=== PATIENT | female | born 1955 | race Caucasian/White ===

== ENCOUNTER → 2017-08-02 | Outpatient (CLI) | payer OTHER ==
[~2017-08-02] MED LIST: ASPIR-LOW81 MG PO; ATIVAN0.5 MG PO; BIAXIN500 MG PO; CLARITIN10 MG PO; DOXYCYCLINE100 MG PO; LOVASTATIN40 MG PO; METFORMIN500 MG PO; METOPROLOL SR25 MG PO; MOTRIN800 MG PO; NORCO 5-325 TA1 EACH PO; PAXIL40 MG PO; PREVACID SOLUTA30 MG PO; XARELTO10 MG PO
[2017-08-02 10:32] LABS: BASO # 0.1 10*3/uL (0.0-0.1); BASO % 1.2 % (0.0-1.0); EOS # 0.2 10*3/uL (0.0-0.4); EOS % 4.9 % (1.0-4.0); HEMATOCRIT 44.8 % (37.0-47.0); HEMOGLOBIN 14.5 g/dl (12.0-16.0); LYMPH # 1.4 10*3/uL (1.3-4.4); LYMPH % 28.8 % (27.0-41.0); MEAN CELL VOLUME 90.9 fl (81.0-99.0); MEAN CORPUSCULAR HGB 29.4 pg (27.0-31.0); MEAN CORPUSCULAR HGB CONC 32.4 g/dl (33.0-37.0); MEAN PLATELET VOLUME 11.4 fl (9.6-12.3); MONO # 0.6 10*3/uL (0.1-1.0); MONO % 11.4 % (3.0-9.0); NEUT # 2.6 10*3/uL (2.3-7.9); NEUT % 53.5 % (47.0-73.0); PLATELET COUNT AUTOMATED 181 10*3/uL (130-400); RED BLOOD COUNT 4.93 10*6/uL (4.10-5.10); RED CELL DISTRI WIDTH 13.2 % (0-14.5); WHITE BLOOD COUNT 4.9 10*3/uL (4.8-10.8)
[2017-08-02 10:38] LABS: ALBUMIN 3.6 gm/dl (3.1-4.5); ALKALINE PHOSPHATASE 99 U/L (45-117); BUN 12 mg/dl (7-24); CHLORIDE 106 mmol/L (98-107); CHOLESTEROL 184 mg/dL (<200); FREE T4 0.94 ng/dl (0.76-1.46); HDL CHOLESTEROL 56 mg/dl (40-60); LDL CHOLESTEROL 97 mg/dL (9-159); SGOT/AST 24 IU/L (3-35); SGPT/ALT 36 U/L (12-78); SODIUM 142 mmol/L (136-145); TOTAL PROTEIN 7.7 gm/dL (6.4-8.2); TRIGLYCERIDES 155 mg/dl (<150); VLDL CHOLESTEROL 31 mg/dL (6-40)
[2017-08-02 10:43] LABS: THYROID STIM HORMONE (HS) 0.722 uIU/ml (0.358-4.75)
[2017-08-02 11:45] LABS: VITAMIN D, 25-HYDROXY 43.6 ng/mL (30-100)
== END | disposition home or self-care (01) ==
LOC: LAB 02:56 → MAMMO 13:00
PROVIDERS: Internal Medicine
DX: Z13.1 Encounter for screening for diabetes mellitus (principal); Z13.21 Encounter for screening for nutritional disorder; Z13.220 Encounter for screening for lipoid disorders; Z12.31 Encounter for screening mammogram for malignant neoplasm of breast; E55.9 Vitamin D deficiency, unspecified; R53.81 Other malaise

== ENCOUNTER → 2018-11-30 | Outpatient (CLI) | payer OTHER ==
[~2018-11-30] MED LIST changes: +MULTIVITAMINS1 EAC5 PO
[2018-11-30 10:37] LABS: BASO # 0.1 10*3/uL (0.0-0.1); BASO % 0.9 % (0.0-1.0); EOS # 0.2 10*3/uL (0.0-0.4); EOS % 3.5 % (1.0-4.0); HEMATOCRIT 43.3 % (37.0-47.0); HEMOGLOBIN 14.1 g/dl (12.0-16.0); LYMPH # 1.6 10*3/uL (1.3-4.4); LYMPH % 24.4 % (27.0-41.0); MEAN CELL VOLUME 91.7 fl (81.0-99.0); MEAN CORPUSCULAR HGB 29.9 pg (27.0-31.0); MEAN CORPUSCULAR HGB CONC 32.6 g/dl (33.0-37.0); MEAN PLATELET VOLUME 10.9 fl (9.6-12.3); MONO # 0.6 10*3/uL (0.1-1.0); MONO % 9.3 % (3.0-9.0); NEUT # 4.1 10*3/uL (2.3-7.9); NEUT % 61.6 % (47.0-73.0); PLATELET COUNT AUTOMATED 196 10*3/uL (130-400); RED BLOOD COUNT 4.72 10*6/uL (4.10-5.10); RED CELL DISTRI WIDTH 12.9 % (0-14.5); WHITE BLOOD COUNT 6.6 10*3/uL (4.8-10.8)
[2018-11-30 11:09] LABS: ALBUMIN 3.3 gm/dl (3.1-4.5); ALKALINE PHOSPHATASE 96 U/L (45-117); BUN 15 mg/dl (7-24); CHLORIDE 106 mmol/L (98-107); CHOLESTEROL 228 mg/dL (<200); CREATININE 0.72 mg/dL (0.55-1.02); HDL CHOLESTEROL 55 mg/dl (40-60); LDL CHOLESTEROL 142 mg/dL (9-159); POTASSIUM 4.1 mmol/L (3.5-5.1); SGOT/AST 22 IU/L (3-35); SGPT/ALT 28 U/L (12-78); SODIUM 140 mmol/L (136-145); TOTAL PROTEIN 7.6 gm/dL (6.4-8.2); TRIGLYCERIDES 154 mg/dl (<150); VLDL CHOLESTEROL 31 mg/dL (6-40)
[2018-11-30 11:37] LABS: VITAMIN D, 25-HYDROXY 36.7 ng/mL (30-100)
== END | disposition home or self-care (01) ==
LOC: CANPRECLI → LAB 01:56
PROVIDERS: Internal Medicine
DX: Z13.21 Encounter for screening for nutritional disorder (principal); Z13.220 Encounter for screening for lipoid disorders; I10 Essential (primary) hypertension; E78.2 Mixed hyperlipidemia; E11.9 Type 2 diabetes mellitus without complications

== ENCOUNTER → 2019-01-30 | Day surgery (SDC) | payer OTHER ==
[~2019-01-30] VITALS: Ht 161.2 cm; Wt 90.7 kg
--- NOTE | ~2019-01-30 | PROC NOTE ---
[place], [place] PROCEDURE NOTE NAME: MARIA C HOPKINS UNIT #: [id number] ROOM: DOCTOR: THOMAS YOUNG MD BIRTHDATE: [birth year] DOS: 01/30/2019 PREOPERATIVE DIAGNOSIS: Screening examination. POSTOPERATIVE DIAGNOSIS: Normal colon. PROCEDURE: Colonoscopy. ENDOSCOPIST: Thomas Young MD IRRIGATIONIST DESIGNER: BETH. ANESTHESIA: MAC. INDICATIONS: This is a 63-year-old lady here for a screening examination. The procedure and its complications were explained to the patient in detail preoperatively. Complications that were discussed included but were not limited to, bleeding, colon perforation, missed lesions and prolonged pain. She agreed to proceed. DESCRIPTION OF PROCEDURE: After identifying the patient, the patient was brought to the endoscopy suite and placed in the left lateral position. After IV sedation was administered by the anesthesia team, a time-out procedure was called. A digital rectal exam was performed, which was within normal limits. An adult colonoscope was now introduced into the anal canal and advanced sequentially into the rectum, sigmoid colon, descending colon, transverse colon and ascending colon up to the cecum. Upon reaching the cecum, the scope was withdrawn. Total withdrawal time was 6 minutes and 30 seconds. The colon was found to be completely normal right from the area of the cecum up to the rectum. After the scope was withdrawn, the patient was brought back to the recovery room in stable fashion. Based on these findings, the patient is recommended to have another colonoscopy in 10 years or sooner if new symptoms appear. Thomas Young MD CM:PROCNOTE:PROCEDURE NOTE [id number] THOMAS YOUNG MD
[2019-01-30 07:53] VITALS: BP 117/51
[2019-01-30 08:21] VITALS: BP 117/51
[2019-01-30 08:36] VITALS: BP 113/63
[2019-01-30 08:50] VITALS: BP 113/63
== END | disposition home or self-care (01) ==
LOC: SDC 01-27 11:00
DX: Z12.11 Encounter for screening for malignant neoplasm of colon (principal); I10 Essential (primary) hypertension; E11.9 Type 2 diabetes mellitus without complications; F32.9 Major depressive disorder, single episode, unspecified; E78.5 Hyperlipidemia, unspecified; E66.9 Obesity, unspecified; Z68.34 Body mass index [BMI] 34.0-34.9, adult; Z88.8 Allergy status to other drugs, medicaments and biological substances; Z90.49 Acquired absence of other specified parts of digestive tract; Z79.899 Other long term (current) drug therapy; Z98.890 Other specified postprocedural states

== ENCOUNTER → 2019-02-07 | Outpatient (CLI) | payer OTHER ==
[2019-02-08 08:10] LABS: HEPATITIS B SURFACE AG Negative (Negative); HEPATITIS C VIRUS ANTIBODY <0.1 s/co (0.0-0.9)
== END | disposition home or self-care (01) ==
LOC: LAB 16:53
PROVIDERS: Internal Medicine
DX: R94.5 Abnormal results of liver function studies (principal)

== ENCOUNTER → 2019-06-09 | Outpatient (CLI) | payer OTHER | END | disposition home or self-care (01) | LOC: MAMMO 10:46 | DX: Z12.31 Encounter for screening mammogram for malignant neoplasm of breast (principal) ==

== ENCOUNTER → 2020-07-14 | Outpatient (CLI) | payer OTHER ==
[2020-07-14 09:51] LABS: BASO # 0.1 10*3/uL (0.0-0.1); EOS # 0.2 10*3/uL (0.0-0.4); EOS % 3.6 % (1.0-4.0); HEMATOCRIT 43.8 % (37.0-47.0); LYMPH # 1.6 10*3/uL (1.3-4.4); LYMPH % 32.2 % (27.0-41.0); MEAN CELL VOLUME 91.3 fl (81.0-99.0); MEAN CORPUSCULAR HGB 29.2 pg (27.0-31.0); MEAN PLATELET VOLUME 10.8 fl (9.6-12.3); MONO # 0.5 10*3/uL (0.1-1.0); MONO % 9.1 % (3.0-9.0); NEUT # 2.7 10*3/uL (2.3-7.9); NEUT % 53.9 % (47.0-73.0); PLATELET COUNT AUTOMATED 256 10*3/uL (130-400); RED CELL DISTRI WIDTH 12.8 % (0-14.5); WHITE BLOOD COUNT 5.1 10*3/uL (4.8-10.8)
[2020-07-14 10:17] LABS: ALBUMIN 3.5 gm/dl (3.1-4.5); ALKALINE PHOSPHATASE 83 U/L (45-117); BUN 14 mg/dl (7-24); CHLORIDE 108 mmol/L (98-107); CHOLESTEROL 211 mg/dL (<200); HDL CHOLESTEROL 56 mg/dl (40-60); LDL CHOLESTEROL 122 mg/dL (9-159); SGOT/AST 26 IU/L (3-35); SGPT/ALT 32 U/L (12-78); SODIUM 141 mmol/L (136-145); TOTAL PROTEIN 7.7 gm/dL (6.4-8.2); TRIGLYCERIDES 167 mg/dl (<150); VLDL CHOLESTEROL 33 mg/dL (6-40)
== END | disposition home or self-care (01) ==
LOC: CARD 00:01 → RAD 13:30 → MAMMO 14:00
PROVIDERS: ATTEND Internal Medicine
DX: Z12.31 Encounter for screening mammogram for malignant neoplasm of breast (principal); Z13.820 Encounter for screening for osteoporosis; I10 Essential (primary) hypertension; E78.2 Mixed hyperlipidemia; R73.9 Hyperglycemia, unspecified; I65.23 Occlusion and stenosis of bilateral carotid arteries; M85.851 Other specified disorders of bone density and structure, right thigh; R06.02 Shortness of breath; Z78.0 Asymptomatic menopausal state

== ENCOUNTER → 2020-07-27 | Outpatient (CLI) | payer OTHER | END | disposition home or self-care (01) | LOC: MAMMO 00:19 | PROVIDERS: ATTEND Internal Medicine | DX: R92.8 Other abnormal and inconclusive findings on diagnostic imaging of breast (principal) ==

== ENCOUNTER 2021-11-05 18:34 | Emergency (ER) | payer OTHER ==
[~2021-11-05] VITALS: Ht 160 cm; Wt 90.7 kg
[2021-11-05 18:50] VITALS: BP 132/72
[2021-11-05] MEDS ORDERED: PREDNISONE20 M1 PO (19:26)
== END 2021-11-05 19:36 | disposition home or self-care (01) ==
LOC: ED 18:34
DX: L23.7 Allergic contact dermatitis due to plants, except food (principal)

== ENCOUNTER → 2023-03-10 | Outpatient (CLI) | payer OTHER ==
[~2023-03-10] MED LIST changes: +PREDNISONE20 M1 PO
[2023-03-10 07:40] LABS: BASO # 0.1 10*3/uL (0.0-0.1); BASO % 0.9 % (0.0-1.0); EOS # 0.2 10*3/uL (0.0-0.4); EOS % 4.1 % (1.0-4.0); HEMATOCRIT 44.4 % (37.0-47.0); LYMPH # 1.7 10*3/uL (1.3-4.4); LYMPH % 32.2 % (27.0-41.0); MEAN CELL VOLUME 92.3 fl (81.0-99.0); MEAN CORPUSCULAR HGB 29.9 pg (27.0-31.0); MEAN CORPUSCULAR HGB CONC 32.4 g/dl (33.0-37.0); MEAN PLATELET VOLUME 10.4 fl (9.6-12.3); MONO # 0.5 10*3/uL (0.1-1.0); NEUT # 2.8 10*3/uL (2.3-7.9); NEUT % 52.4 % (47.0-73.0); PLATELET COUNT AUTOMATED 261 10*3/uL (130-400); RED BLOOD COUNT 4.81 10*6/uL (4.10-5.10); RED CELL DISTRI WIDTH 12.6 % (0-14.5); WHITE BLOOD COUNT 5.4 10*3/uL (4.8-10.8)
[2023-03-10 08:09] LABS: ALKALINE PHOSPHATASE 84 U/L (46-116); BUN 8 mg/dl (9-23); CHLORIDE 105 mmol/L (98-107); CHOLESTEROL 199 mg/dL (<200); FREE T4 1.02 ng/dl (0.89-1.76); LDL CHOLESTEROL 109 mg/dL (9-159); POTASSIUM 4.4 mmol/L (3.4-5.1); SGPT/ALT 20 U/L (10-49); TRIGLYCERIDES 189 mg/dl (<150)
[2023-03-10 08:53] LABS: VITAMIN D, 25-HYDROXY 43.1 ng/mL (30-100)
== END | disposition home or self-care (01) ==
LOC: LAB 01:04
PROVIDERS: ATTEND Internal Medicine
DX: I10 Essential (primary) hypertension (principal); F33.1 Major depressive disorder, recurrent, moderate; F41.1 Generalized anxiety disorder; D51.9 Vitamin B12 deficiency anemia, unspecified

== ENCOUNTER → 2023-05-14 | Outpatient (CLI) | payer OTHER | END | disposition home or self-care (01) | LOC: MAMMO 01:19 | PROVIDERS: ATTEND Internal Medicine | DX: Z12.31 Encounter for screening mammogram for malignant neoplasm of breast (principal) ==